=== PATIENT | female | born 1950 | race Caucasian/White ===

== ENCOUNTER 2016-12-03 07:10 | Day surgery (SDC) | payer MEDICARE ==
--- NOTE | 2016-11-18 21:27 | HP ---
CC: Partha Adam MD; Dr. Kelli Denson * ADMISSION HISTORY AND PHYSICAL: DATE OF ADMISSION/SURGERY: 12/03/16 - [facility] PATIENT OF: Violette Gonsales MD ATTENDING PHYSICIAN: Violette Gonsales MD * (DICTATED BY PRISCILA EBTH) PRIMARY CARE PHYSICIAN: Kelli Denson MD CHIEF COMPLAINT: Abnormal left mammogram. HISTORY OF PRESENT ILLNESS: Ms. Vegas is a pleasant 66-year-old female who was referred to our office due to abnormal left mammogram. The patient had her annual mammogram back on 07/28/16 that showed some abnormalities. 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 The patient presented back to her primary care physician for evaluation, who referred her to our office to discuss breast surgery. It is to be noted that the patient had history of ductal carcinoma in situ back in the mid that was treated with lumpectomy followed by radiation. The patient after that was not treated with tamoxifen and she had a yearly routine mammogram that was essentially normal until the latest one done at the end of June of this year. It was initially recommended for the patient to undergo a simple mastectomy with either immediate or delayed reconstruction. However, given her multiple medical issues and comorbidities, and the fact that the biopsy showed that the tumor was only limited to the intraductal space, other arrangement and discussion of other options were done with the patient and eventually, she will be scheduled for a mammogram-guided needle localization with lumpectomy to be performed by Dr. Gonsales. The patient had multiple consults prior to making that decision with both Hematology/Oncology, Dr. Adam as well as Plastic Surgery and the patient was found to be a poor candidate for reconstruction surgery given her prior radiation and the expected poor healing process for which other alternatives of surgery were discussed with her. The patient had an MRI of the biopsy cavity on the left side that showed enhancement and she also had grade 2 ER/TX positive tumor. As mentioned above, it was initially recommended for the patient to have mastectomy with staged procedure and delayed reconstruction; however, given that her disease is ER/TX positive as well as her known multiple medical problems including severe COPD, it was noted that the patient will benefit from local excision under mammogram guidance as well as adjunct hormonal therapy. The patient was seen initially by Dr. Gonsales about a month ago and again about a week ago to discuss surgical option. She seems to be well informed and she agreed to forward with the current plan of management, which will be a mammogram-guided needle localization with left breast excision to be performed on a later day. 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 She also has a severe chronic obstructive pulmonary disease, which has been oxygen dependent at home. She had a severe episode of respiratory failure that required ICU admission and intubation back in February of this year. She also had history of perforated gastric ulcer, GERD, hypertension, myofascial pain syndrome of both upper and lower extremities for which she has been followed by the pain clinic since 1990. PAST SURGICAL HISTORY: Significant for a repair of perforated gastric ulcer, knee surgery on both sides with bilateral total knee replacements in 2015. She also has a history of lumpectomy of the left breast due to DCIS back in 1993. She also had a rotator cuff repair and periodontal surgery in the past. CURRENT MEDICATIONS: Her medications at home include: 1. Aspirin 81 mg p.o. daily. 2. Celecoxib 200 mg 1 capsule daily. 3. Diltiazem 360 mg once daily. 4. Duloxetine 60 mg capsule b.i.d. 5. Vitamin C 1000 mg chewable once daily. 6. Ferrous sulfate 325 mg 1 tablet daily. 7. Lasix 40 mg 1 tablet b.i.d. 8. Gabapentin 300 mg 2 capsules 4 times daily. 9. Oxycodone 15 mg 1 tablet q.6 hours p.r.n. for pain. 10. Potassium chloride 20 mEq once daily. 11. Tizanidine 4 mg 1 tablet q.h.s. p.r.n. 12. Levocetirizine 5 mg tablet daily. ALLERGIES: She has no known drug allergies. FAMILY HISTORY: She has a father who of COPD and stroke and mother of CVA at age 90. She also reports history of breast cancer in a maternal aunt. SOCIAL HISTORY: The patient is a long-term smoker, who quit a few years ago. She has chronic COPD, who is oxygen dependent at home. Denies alcohol intake and caffeine intake is minimal. She is single, retired commercial real estate attorney. Again, smoked for 28 years, stopped in 2011 and she also has a history of heroin and cocaine and pot abuse; however, she denies any illicit drug use at this time. REVIEW OF SYSTEMS: See HPI; otherwise, negative. She denies any headache, dizziness, blurred vision, or double vision. No cough, wheezing, or shortness of breath. No sore throat, chest pain, or palpitation. She denies any back pain, flank pain, dysuria, hematuria, or urinary frequency. PHYSICAL EXAMINATION GENERAL: She is a pleasant chronically ill-appearing female, who appears comfortable at the time of consultation. VITAL SIGNS: Her vitals today in the office revealed blood pressure of 124/72, respirations of 20, temperature of 98.3, and pulse of 68. HEENT: Sclerae anicteric. PERRLA. EOMs intact. Oropharynx is pink, moist with no exudate. NECK: Supple. Trachea midline. No cervical adenopathy, thyromegaly, or JVD. LUNGS: Decreased breath sounds bilaterally, but no rales, wheezes, or rhonchi noted. BREASTS: Exam was performed earlier this week by Dr. Gonsales that was done in both supine and sitting position. Breasts are noted to be symmetrical with some bruising noted to the left breast. Palpation reveals left breast is slightly indurated as well. Both breasts are dense and diffusely nodular bilaterally. There is retraction of both nipples bilaterally. No palpable definite masses were noted on the left breast. No visible or palpable cervical or axillary lymphadenopathy noted. HEART: Regular rate and rhythm. No rubs, murmurs, or gallops noted. BACK: With normal curvature. No CVA tenderness. ABDOMEN: Soft, nontender, and nondistended. No hernias, masses, or hepatosplenomegaly. EXTREMITIES: Without cyanosis, clubbing, or edema. RECTAL: Exam deferred at this time. NEUROLOGIC: Grossly intact. IMPRESSION: A 66-year-old female with recurrent left breast ductal carcinoma in situ. PLAN: The patient will be scheduled for a mammogram-guided needle localization with excision of the left breast to be performed by Dr. Gonsales on a later date. The rationale, indications, risks, and benefits of surgery were discussed with her today. Risks include, but not limited to, infection, bleeding, or injury to adjacent structures. The patient appeared to understand and wishes proceed as outlined. Given her multiple medical comorbidities and her chronic COPD, the patient will obviously need a medical clearance, recent chest x-ray as well as an EKG, and baseline blood work. She seems to be well informed and agreed to proceed with surgery as outlined. We will follow her up accordingly after the surgery and I also discussed with her the possibility of admission for observation overnight if there is any trouble with her breathing postoperatively ; however, more than likely, her surgery will be done under conscious sedation as well as local analgesics. PRISCILA BETH [id number]/[facility] #: [id number] TONY
[~2016-12-03 07:10] MED LIST: Buffered Lidocaine 0.9% SYRIN* 5 ML/SYR SYRINGE INTRADERM ONE; Famotidine IV* 10 MG/ML 2 ML (20 mg) IV ONE
[2016-12-03] MEDS ORDERED: Famotidine IV* 10 MG/ML 2 ML (20 mg) ONE (07:16)
[2016-12-03] MEDS ORDERED: ceFAZolin 2 GM PREMIX (*) 50 ML IVPB ONE (07:16)
[2016-12-03] MEDS ORDERED: Lidocaine 2.5%/Prilocain 2.5%* 5 GM TUBE ONE ×2 (07:16→07:52)
[2016-12-03] MEDS ORDERED: Midazolam* 1 MG/ML 5 ML VIAL (5 MG) ONE (09:12)
[2016-12-03] MEDS ORDERED: fentaNYL* 50 MCG/ML 2 ML VIAL (100 MCG VIAL) ONE (09:12)
--- NOTE | 2016-12-03 09:45 | RAD ---
INDICATION: Left breast needle localization. COMPARISON: Comparison is made with prior outside mammograms from July 28, 2016, August 09, 2016 and prior stereotactic biopsy from August 19, 2016. TECHNIQUE: The benefits and risks of the procedure were explained to the patient. The patient consented to the exam. A timeout was performed before beginning the procedure. The patient was prepped in the usual sterile fashion. The breast was anesthetized with buffered lidocaine. Using digital mammographic guidance a needle was placed immediately adjacent to a localization clip from the prior stereotactic biopsy. This was exchanged for a Hawkin's type wire. Postprocedure mammograms demonstrate that the wire extends approximately 3 cm beyond the localization clip. The wire is adjacent to the localization clip and located 2.5 mm anterior to the clip. The patient tolerated the procedure without incident. IMPRESSION: SUCCESSFUL NEEDLE LOCALIZATION PROCEDURE.
[2016-12-03] MEDS ORDERED: Lidocaine 1% INJ* 10 MG/ML 30 ML SDV ONE (09:47)
[2016-12-03] MEDS ORDERED: Bupivacaine 0.5% SDV PF* 30 ML VIAL ONE (09:47)
[2016-12-03] MEDS ORDERED: Ketorolac INJ* 30 MG/ML 1 ML VIAL ONE (10:11)
[2016-12-03] MEDS ORDERED: Dexamethasone IV* 4 MG/ML 1 ML (4 MG) ONE (10:11)
[2016-12-03] MEDS ORDERED: Lidocaine 2% PF * 5 ML VIAL ONE (10:11)
[2016-12-03] MEDS ORDERED: Ondansetron INJ* 2 MG/ML VIAL ONE (10:11)
[2016-12-03] MEDS ORDERED: Propofol* 10 MG/ML 20 ML BTL IV PUSH ONE (10:11)
[2016-12-03] MEDS ORDERED: oxyCODONE TAB* 5 MG TAB PO PRN (10:13)
[2016-12-03] MEDS ORDERED: HYDROmorphone INJ* 1 MG/ML CARPUJECT SYRINGE IV PRN (10:13)
[2016-12-03] MEDS ORDERED: Acetaminophen TAB* 325 MG PO PRN (10:13)
[2016-12-03] MEDS ORDERED: DiMENhydriNATE IV* 50 MG/ML VIAL IV PUSH PRN (10:13)
--- NOTE | 2016-12-03 11:31 | SURGPN ---
Brief Operative Note - Surgery Procedures: 12/03/16 Op Note (dictated) Pre-op dx: left breast DCIS post-op dx: same Procedure: needle localization excision of left breast DCIS Surgeon: Dru Asst: Francesco Anesth: general EBL: 3 cc SCDs on during surgery Abx: given pre-op Pt. tolerated procedure well and was transferred to in a stable condition. CLFoster
[2016-12-03 12:09] VITALS: BP 139/76
--- NOTE | 2016-12-03 22:14 | OP ---
CC: [facility]; [facility] OPERATIVE REPORT: DATE OF OPERATION: 12/03/16 DATE OF : 48 SURGEON: Violette Gonsales MD. MIXER AND BLENDER: . PRE-OP DIAGNOSIS: Left breast ductal carcinoma in situ. POST-OP DIAGNOSIS: Left breast ductal carcinoma in situ. OPERATIVE PROCEDURE: Needle localization excision of left breast ductal carcinoma in situ. INDICATIONS: This patient is a 66-year-old woman recently diagnosed with recurrent breast cancer. She has had a lumpectomy and radiation in the past, but as this was a small area of DCIS diagnosed b y stereotactic biopsy, the decision was made to limit surgery to needle localization excision of her ductal carcinoma in situ. DESCRIPTION OF PROCEDURE: On the morning of surgery, she underwent needle localization without diff iculty and was then brought to the operating room. She was placed on the OR table in a supine posit ion and given general anesthesia. The left breast was prepped and draped in the usual sterile fashi on, taking care not to dislodge the localizing wire. After infiltrating with local anesthetic, a cu rvilinear incision was made in an elliptical fashion encompassing the wire and the stereotactic biop sy site scar. Subcutaneous tissue was then divided with electrocautery to excise the mass of tissue from around the wire. The specimen was removed from the breast, marked in the usual fashion and karimi nded off. Hemostasis was assured with electrocautery and when the report came back confirming the p resence of the clip and the wire in the specimen, closure was accomplished. This was done after irr igating the wound with saline and then instilling some additional local into the wound. Closure was accomplished with 3-0 Polysorb in the subcutaneous layer and the skin was closed with 4-0 Surgipro in a subcuticular fashion. Steri-Strips and a dry sterile dressing were applied. All sponge and in strument counts were correct. The patient tolerated the procedure well and was transferred to [facility] in a stable condition. [id number]/[facility] #: [id number]
== END 2016-12-03 12:11 | disposition home or self-care (01) ==
LOC: OR 07:10
PROVIDERS: ATTEND Surgery
DX: D05.12 Intraductal carcinoma in situ of left breast (principal); J44.9 Chronic obstructive pulmonary disease, unspecified; I10 Essential (primary) hypertension; Z87.891 Personal history of nicotine dependence; Z99.81 Dependence on supplemental oxygen; Z17.0 Estrogen receptor positive status [ER+]
CPT/HCPCS: 88307; A9270-GY; J0690; J1100; J1885; J2001; J2250; J2405; J2704; J3010